=== PATIENT | female | born 1945 | race Caucasian/White ===

== ENCOUNTER 2018-05-30 04:15 | Inpatient (IN) | payer OTHER, BC ==
--- OUTSIDE RECORDS SUMMARY | 2018-05-30 04:17 | XMS REPORT | Clinical Summary ---
:1945 Author Organization [facility] Address [address] [place] [address] Care Team Providers Name Role Phone Asked, No Pcp Primary Care Provider Unavailable Allergies No Known Allergies Medications Medication Sig Dispensed Refills Start Date End Date Status HYDROcodone-acetamino Take 1 tablet by 0 Active phen (NORCO) 10-325 mouth every 6 (six) mg per tablet hours as needed for moderate pain. lisinopril Take 5 mg by mouth 0 Active (PRINIVIL,ZESTRIL) 5 daily. mg tablet ibuprofen Take 800 mg by 0 Active (ADVIL,MOTRIN) 800 MG mouth every 6 (six) tablet hours as needed for mild pain. Active Problems Not on file Encounters Date Type Specialty Care Team Description 05/18/2018 Hospital Encounter Radiology Carlos Enrique Cameron, Scoliosis of thoracolumbar spine, unspecified scoliosis type 05/18/2018 Hospital Encounter Radiology Carlos Enrique Cameron Scoliosis of thoracolumbar spine, unspecified scoliosis type 05/18/2018 Hospital Encounter Radiology Carlos Enrique Cameron, Scoliosis of thoracolumbar spine, unspecified scoliosis type 05/18/2018 Hospital Encounter Radiology Carlos Enrique Cameron MD 05/18/2018 Office Visit Neurosurgery Carlos Enrique Cameron, Scoliosis due to degenerative disease of spine in adult patient (Primary Dx) 05/18/2018 Orders Only Neurosurgery Fernandez, Scoliosis of NEDA Velázquez thoracolumbar spine, unspecified scoliosis type (Primary Dx) after 05/29/2017 Family History Medical History Relation Name Comments Cancer Other Heart disease Other Hypertension Other Stroke Other Relation Name Status Comments Other Other Social History Tobacco Use Types Packs/Day Years Used Date Former Smoker 1 40 Quit: 2004 Smokeless Tobacco: Never Used Alcohol Use Drinks/Week oz/Week Comments Yes Sex Assigned at Date Recorded Not on file Job Start Date Occupation Industry Not on file Not on file Not on file Travel History Travel Start Travel End No recent travel history available. Last Filed Vital Signs Vital Sign Reading Time Taken Blood Pressure - - Pulse - - Temperature - - Respiratory Rate - - Oxygen Saturation - - Inhaled Oxygen Concentration - - Weight 73 kg (161 lb) 05/18/2018 7:29 AM ACCESS CLINICIAN Height 154.9 cm (5' 1") 05/18/2018 7:29 AM ACCESS CLINICIAN Body Mass Index 30.42 05/18/2018 7:29 AM ACCESS CLINICIAN Plan of Treatment Date Type Specialty Care Team Description 06/03/2018 Office Visit Neurosurgery Carlos Enrique Cameron MD [address] [facility] [address] [place] [address] Health Maintenance Due Date Last Done Comments BREAST CANCER SCREENING 1996 COLON CANCER SCREENING 1996 SHINGLES VACCINES (#1) 1996 65+ PNEUMOCOCCAL VACCINE Completed 11/06/2017, 02/15/2014, 12/30/2006 PNEUMOCOCCAL POLYSACCHARIDE VACCINE Completed 11/06/2017, 12/30/2006 AGE 65 AND OVER INFLUENZA VACCINE Completed 12/02/2017, 01/03/2014, 12/30/2006 Procedures Procedure Name Priority Date/Time Associated Diagnosis Comments XR LUMBAR SPINE AP Routine 05/18/2018 4:21 Scoliosis of Results for this LATERAL FLEXION PM ACCESS CLINICIAN thoracolumbar spine, procedure are in AND EXTENSION unspecified scoliosis the results type section. XR SPINE SCOLIOSIS Routine 05/18/2018 4:20 Scoliosis of Results for this 2-3 VIEWS PM ACCESS CLINICIAN thoracolumbar spine, procedure are in unspecified scoliosis the results type section. XR THORACIC SPINE Routine 05/18/2018 4:20 Scoliosis of Results for this COMPLETE 4+ VW PM ACCESS CLINICIAN thoracolumbar spine, procedure are in unspecified scoliosis the results type section. MRI SPINE EXTERNAL Routine 11/21/2017 10:38 Results for this STUDY AM CDT procedure are in the results section. after 05/29/2017 Results XR Lumbar Spine Ap Lateral Flexion And Extension (05/18/2018 4:21 PM ACCESS CLINICIAN) Narrative Performed At EXAMINATION: XR LUMBAR SPINE AP LATERALFLEXION AND EXTENSION HM [facility] CLINICAL HISTORY: M41.9 Scoliosisunspecified, SCOLIOSIS COMPARISON:None IMPRESSION: Mild left convex lumbar scoliosis which is reduced from 12 degrees (in supine positioning) to 7 degrees with left lateral bending. Interbody cage device at L4-L5. Severe intervertebral disc space narrowing at L1-L2 and L2-L3 with vacuum cleft formation, endplate sclerosis, and mild to moderate paravertebral osteophyte formation. Vertebral body heights appear maintained. Mild retrolisthesis of L1 on L2, L2 on L3, and L3 on L4 which appears partially reduced with flexion. No dynamic instability identified. Right hip arthroplasty. Calcified uterine fibroids. [id number] Procedure Note Interface, Radiology Results Incoming - 05/18/2018 6:06 PM ACCESS CLINICIAN EXAMINATION: XR LUMBAR SPINE AP LATERAL FLEXION AND EXTENSION CLINICAL HISTORY: M41.9 Scoliosis unspecified, SCOLIOSIS COMPARISON: None IMPRESSION: Mild left convex lumbar scoliosis which is reduced from 12 degrees (in supine positioning) to 7 degrees with left lateral bending. Interbody cage device at L4-L5. Severe intervertebral disc space narrowing at L1-L2 and L2-L3 with vacuum cleft formation, endplate sclerosis, and mild to moderate paravertebral osteophyte formation. Vertebral body heights appear maintained. Mild retrolisthesis of L1 on L2, L2 on L3, and L3 on L4 which appears partially reduced with flexion. No dynamic instability identified. Right hip arthroplasty. Calcified uterine fibroids. [id number] Performing Organization Address City/State/Zipcode Phone Number [facility] [address] [place] [address] XR Spine Scoliosos 2-3 Views (05/18/2018 4:20 PM ACCESS CLINICIAN) Narrative Performed At EXAMINATION: XR SPINE SCOLIOSIS 2-3 VIEWS [facility] CLINICAL HISTORY: M41.9 Scoliosisunspecified, scoliosis COMPARISON:None IMPRESSION: 12 rib-bearing thoracic vertebrae and 5 lumbar vertebrae. Left convex lumbar scoliosis with Henriquez angle measuring 15 degrees from the superior endplate of T12 to the inferior endplate of L3. Minor curvatures of the thoracic spine with Henriquez angles measuring less than 5 degrees. A coronal stevo line drawn inferiorly from the mid C7 vertebral body terminates approximately 2.9 cm to the right of the mid S1 level. A sagittal stevo line drawn inferiorly from the mid C7 vertebral body terminates approximately 2.2 cm anterior to the posterior aspect of the superior endplate of S1. Right hip arthroplasty. Interbody cage device at L4-L5. Calcified uterine fibroid. [id number] Procedure Note Interface, Radiology Results Incoming - 05/18/2018 5:59 PM ACCESS CLINICIAN EXAMINATION: XR SPINE SCOLIOSIS 2-3 VIEWS CLINICAL HISTORY: M41.9 Scoliosis unspecified, scoliosis COMPARISON: None IMPRESSION: 12 rib-bearing thoracic vertebrae and 5 lumbar vertebrae. Left convex lumbar scoliosis with Henriquez angle measuring 15 degrees from the superior endplate of T12 to the inferior endplate of L3. Minor curvatures of the thoracic spine with Henriquez angles measuring less than 5 degrees. A coronal stevo line drawn inferiorly from the mid C7 vertebral body terminates approximately 2.9 cm to the right of the mid S1 level. A sagittal stevo line drawn inferiorly from the mid C7 vertebral body terminates approximately 2.2 cm anterior to the posterior aspect of the superior endplate of S1. Right hip arthroplasty. Interbody cage device at L4-L5. Calcified uterine fibroid. [id number] Performing Organization Address [facility] Phone Number [employer] [address] [place] [address] XR Thoracic Spine Complete 4+ Vw (05/18/2018 4:20 PM ACCESS CLINICIAN) Narrative Performed At EXAMINATION: XR THORACIC SPINE COMPLETE 4VW [facility] CLINICAL HISTORY: M41.9 Scoliosisunspecified, SCOLIOSIS COMPARISON:None IMPRESSION: Physiologic changes with left and right lateral bending. Multilevel minimal anterior endplate spurring. Vertebral body heights appear maintained. Mild thoracic kyphosis. No suspicious osseous lesion. [id number] Procedure Note Interface, Radiology Results Incoming - 05/18/2018 5:56 PM ACCESS CLINICIAN EXAMINATION: XR THORACIC SPINE COMPLETE 4 VW CLINICAL HISTORY: M41.9 Scoliosis unspecified, SCOLIOSIS COMPARISON: None IMPRESSION: Physiologic changes with left and right lateral bending. Multilevel minimal anterior endplate spurring. Vertebral body heights appear maintained. Mild thoracic kyphosis. No suspicious osseous lesion. [id number] Performing Organization Address [facility] Phone Number [employer] [address] [place] [address] MRI Spine External Study (11/21/2017 10:38 AM CDT) Narrative Performed At This exam was not acquired at a [facility] facility and has not been [facility] interpreted by a [facility] Provider.The exam was imported into our imaging system for comparisons purposes. Performing Organization Address City/[facility] Phone Number [facility] [address] [place] [address] after 05/29/2017 Insurance Payer Benefit Plan / Group Subscriber ID Type Phone Address BCBS BCBS CHOICE PPO/FEDERAL EMPL PPO xxxxxxxxx PPO MEDICARE MEDICARE PART A AND B xxxxxxxxxxx Medicare [place], [place] Advance Directives Patient has advance care planning documents on file. For more information, please contact:Jose Roberts[address] [place] [address]
[2018-05-30] MEDS ORDERED: FENTANYL CITR 100 MCG/2 ML ONE (05:00)
[2018-05-30] MEDS ORDERED: NA CHLORIDE 0.9% 1,000 ML ONE (05:00)
[2018-05-30] MEDS ORDERED: ONDANSETRON 4 MG/2 ML VIAL ONE ×2 (05:00→05:40)
[2018-05-30 05:16] LABS: Absolute Lymphocytes (CBC) 1.4 K/uL (0.7-4.9); Absolute Monocytes 0.6 K/uL (0.1-1.3); Absolute Neutrophil 6.3 K/uL (1.8-8.0); Basophils % 0.4 % (0-1.3); Eosinophils % 1.3 % (0-4.4); Hematocrit 38.5 % (36.0-45.0); Lymphocytes % 16.7 % (15.3-44.8); Monocytes % 7.6 % (3.3-12.3); RBC Red Blood Cell Count 4.21 M/uL (3.86-4.86)
[2018-05-30 05:38] LABS: Albumin 3.6 g/dL (3.4-5.0); Bilirubin Direct 0.2 mg/dL (0-0.2); Bilirubin Total 0.5 mg/dL (0.2-1.0); Potassium 4.2 mmol/L (3.5-5.1); Protein, Total 7.1 g/dL (6.4-8.2)
[2018-05-30] MEDS ORDERED: MORPHINE 4 MG/ML SYR ONE (05:40)
[2018-05-30] MEDS ORDERED: CEFTRIAXONE/SWI 1gm 1 GM/10 ML SYR ONE (05:57)
--- NOTE | 2018-05-30 06:01 | EDPHYS ---
Physician Documentation [facility] Name: Whitney Peguero Age: 72 yrs Sex: Female : 1945 Arrival Date: 05/30/2018 Time: 04:16 Bed 6 Private MD: ED Physician Dio Christianson HPI: 05/30 04:47 This 72 yrs old Female presents to ER via Ambulatory with complaints of L bebeto Flank Pain. 04:47 The patient complains of pain in the left low back and left mid back. The pain bebeto radiates. Onset: The symptoms/episode began/occurred 2 day(s) ago. Modifying factors: The symptoms are alleviated by nothing. the symptoms are aggravated by nothing. Associated signs and symptoms: Pertinent positives: dysuria, urinary frequency, nausea. Severity of pain: At its worst the pain was moderate in the emergency department the pain is unchanged. The patient has not experienced similar symptoms in the past. Historical: - Allergies: 04:33 No Known Allergies; tl2 - Home Meds: 04:33 lisinopril Oral [Active]; [place] Oral [Active]; tl2 - PMHx: 04:33 Hypertension; breast cancer; chronic back pain; tl2 - PSHx: 04:33 Appendectomy; double mastectomy; hip replacement; tl2 - Immunization history:: Adult Immunizations up to date. - Social history:: Smoking status: Patient/guardian denies using tobacco. - Ebola Screening: : No symptoms or risks identified at this time. ROS: 04:47 Constitutional: Negative for fever, chills, and weight loss, Eyes: Negative for injury, bebeto pain, redness, and discharge, ENT: Negative for injury, pain, and discharge, Neck: Negative for injury, pain, and swelling, Cardiovascular: Negative for chest pain, palpitations, and edema, Respiratory: Negative for shortness of breath, cough, wheezing, and pleuritic chest pain, Abdomen/GI: Negative for abdominal pain, nausea, vomiting, diarrhea, and constipation, : Negative for injury, bleeding, discharge, and swelling, MS/Extremity: Negative for injury and deformity, Skin: Negative for injury, rash, and discoloration, Neuro: Negative for headache, weakness, numbness, tingling, and seizure, Psych: Negative for depression, anxiety, suicide ideation, homicidal ideation, and hallucinations, Allergy/Immunology: Negative for hives, rash, and allergies, Endocrine: Negative for neck swelling, polydipsia, polyuria, polyphagia, and marked weight changes, Hematologic/Lymphatic: Negative for swollen nodes, abnormal bleeding, and unusual bruising. 04:47 Back: Positive for pain at rest, pain with movement, flank pain, on the right, of the left low back and left mid back. Exam: 04:47 Constitutional: This is a well developed, well nourished patient who is awake, alert, bebeto and in no acute distress. Head/Face: Normocephalic, atraumatic. Eyes: Pupils equal round and reactive to light, extra-ocular motions intact. Lids and lashes normal. Conjunctiva and sclera are non-icteric and not injected. Cornea within normal limits. Periorbital areas with no swelling, redness, or edema. ENT: Nares patent. No nasal discharge, no septal abnormalities noted. Tympanic membranes are normal and external auditory canals are clear. Oropharynx with no redness, swelling, or masses, exudates, or evidence of obstruction, uvula midline. Mucous membranes moist. Neck: Trachea midline, no thyromegaly or masses palpated, and no cervical lymphadenopathy. Supple, full range of motion without nuchal rigidity, or vertebral point tenderness. No Meningismus. Chest/axilla: Normal chest wall appearance and motion. Nontender with no deformity. No lesions are appreciated. Cardiovascular: Regular rate and rhythm with a normal S1 and S2. No gallops, murmurs, or rubs. Normal PMI, no JVD. No pulse deficits. Respiratory: Lungs have equal breath sounds bilaterally, clear to auscultation and percussion. No rales, rhonchi or wheezes noted. No increased work of breathing, no retractions or nasal flaring. Abdomen/GI: Soft, non-tender, with normal bowel sounds. No distension or tympany. No guarding or rebound. No evidence of tenderness throughout. Female : Normal external genitalia. Skin: Warm, dry with normal turgor. Normal color with no rashes, no lesions, and no evidence of cellulitis. MS/ Extremity: Pulses equal, no cyanosis. Neurovascular intact. Full, normal range of motion. Neuro: Awake and alert, GCS 15, oriented to person, place, time, and situation. Cranial nerves II-XII grossly intact. Motor strength 5/5 in all extremities. Sensory grossly intact. Cerebellar exam normal. Normal gait. Psych: Awake, alert, with orientation to person, place and time. Behavior, mood, and affect are within normal limits. 04:47 Back: pain, that is mild, that is moderate, ROM is normal, normal spinal alignment noted, CVA tenderness, that is mild, is noted on the left, vertebral tenderness, is not appreciated, muscle spasm, is not present. Vital Signs: 04:33 BP 190 / 93; Pulse 86; Resp 18; Temp 98.6(O); Pulse Ox 99% on R/A; Weight 74.39 kg; tl2 Height 5 ft. 1 in. (154.94 cm); Pain 7/10; 06:11 BP 159 / 65; Pulse 85; Resp 18; Pulse Ox 99% on R/A; Pain 4/10; tl2 07:29 BP 126 / 64; Pulse 91; Resp 19 S; Pulse Ox 92% on R/A; jl7 04:33 Body Mass Index 30.99 (74.39 kg, 154.94 cm) tl2 MDM: 04:33 Patient medically screened. [facility] 04:49 Data reviewed: vital signs, nurses notes, lab test result(s), EKG, radiologic studies, [facility] CT scan, plain films. 05/30 04:46 Order name: Basic Metabolic Panel; Complete Time: 05:44 [facility] 05/30 04:46 Order name: CBC with Diff; Complete Time: 05:44 [facility] 05/30 04:46 Order name: Creatinine for Radiology; Complete Time: 05:44 [facility] 05/30 04:46 Order name: Hepatic Function; Complete Time: 05:44 [facility] 05/30 04:46 Order name: Lipase; Complete Time: 05:44 [facility] 05/30 04:46 Order name: Blood Culture Adult (2) [facility] 05/30 04:46 Order name: CT Stone Protocol [facility] 05/30 04:46 Order name: Urine Culture [facility] 05/30 06:17 Order name: Urine Dipstick--Ancillary (enter results) [facility] 05/30 07:03 Order name: CBC with Automated Diff [facility] 05/30 07:03 Order name: Comprehensive Metabolic Panel [facility] 05/30 07:03 Order name: Magnesium [facility] 05/30 07:03 Order name: Phosphorus [facility] 05/30 07:03 Order name: Urinalysis [facility] 05/30 04:46 Order name: IV Saline Lock; Complete Time: 05:14 [facility] 05/30 04:46 Order name: Labs collected and sent; Complete Time: 05:15 [facility] 05/30 04:46 Order name: Urine Dipstick-Ancillary (obtain specimen); Complete Time: 06:09 [facility] 05/30 07:03 Order name: Regular EDVT Administered Medications: 05:14 Drug: NS 0.9% 1000 ml Route: IV; Rate: 1 bolus; Site: right antecubital; tl2 07:00 Follow up: IV Status: Completed infusion jl7 05:14 Drug: fentaNYL (PF) 50 mcg Route: IVP; Site: right antecubital; tl2 05:34 Follow up: Response: No adverse reaction; Pain is unchanged, physician notified tl2 05:14 Drug: Zofran 4 mg Route: IVP; Site: right antecubital; tl2 05:34 Follow up: Response: No adverse reaction tl2 05:33 Drug: morphine 4 mg Route: IVP; Site: right antecubital; tl2 06:05 Follow up: Response: No adverse reaction; Pain is decreased tl2 05:34 Drug: Zofran 4 mg Route: IVP; Site: right antecubital; tl2 06:05 Follow up: Response: No adverse reaction tl2 06:09 Drug: Rocephin - (cefTRIAXone) 1 grams Route: IVPB; Infused Over: 30 mins; Site: right tl2 antecubital; Disposition: 05/30/18 06:00 Hospitalization ordered by Nicko Stevens for Inpatient Admission. Preliminary diagnosis are Cystitis, Hydronephrosis with ureteral stricture, not elsewhere classified - failed out patient treatment, Weakness, Unspecified kidney failure, Acute tubulo-interstitial nephritis. - Bed requested for Telemetry/MedSurg (Inpatient). - Status is Inpatient Admission. jl7 - Condition is Fair. - Problem is new. - Symptoms have improved. UTI on Admission? Yes Signatures: Dispatcher [employer] [facility] Dio Christianson MD MD cha Knox, Taylor RN RN tl2 Viviana Albright RN RN jl7 Chuy Chatterjee mw2 Corrections: (The following items were deleted from the chart) 06:01 06:00 Hospitalization Ordered by Nicko Stevens MD for Inpatient Admission. Preliminary [facility] diagnosis is Cystitis; Hydronephrosis with ureteral stricture, not elsewhere classified - failed out patient treatment; Weakness. Bed requested for Telemetry/MedSurg (Inpatient). Status is Inpatient Admission. Condition is Fair. Problem is new. Symptoms have improved. UTI on Admission? Yes. [facility] 07:11 06:01 05/30/2018 06:00 Hospitalization Ordered by Nicko Stevens MD for Inpatient bebeto Admission. Preliminary diagnosis is Cystitis; Hydronephrosis with ureteral stricture, not elsewhere classified - failed out patient treatment; Weakness; Unspecified kidney failure. Bed requested for Telemetry/MedSurg (Inpatient). Status is Inpatient Admission. Condition is Fair. Problem is new. Symptoms have improved. UTI on Admission? Yes. [facility] 07:12 07:11 05/30/2018 06:00 Hospitalization Ordered by Nicko Stevens MD for Inpatient mw2 Admission. Preliminary diagnosis is Cystitis; Hydronephrosis with ureteral stricture, not elsewhere classified - failed out patient treatment; Weakness; Unspecified kidney failure; Acute tubulo-interstitial nephritis. Bed requested for Telemetry/MedSurg (Inpatient). Status is Inpatient Admission. Condition is Fair. Problem is new. Symptoms have improved. UTI on Admission? Yes. [facility] 07:57 07:12 05/30/2018 06:00 Hospitalization Ordered by Nicko Stevens MD for Inpatient jl7 Admission. Preliminary diagnosis is Cystitis; Hydronephrosis with ureteral stricture, not elsewhere classified - failed out patient treatment; Weakness; Unspecified kidney failure; Acute tubulo-interstitial nephritis. Bed requested for Telemetry/MedSurg (Inpatient). Status is Inpatient Admission. Condition is Fair. Problem is new. Symptoms have improved. UTI on Admission? Yes. mw2
--- NOTE | 2018-05-30 06:01 | ER ---
Nurse's Notes [facility] Name: Whitney Peguero Age: 72 yrs Sex: Female : 1945 Arrival Date: 05/30/2018 Time: 04:16 Bed 6 Private MD: Diagnosis: Cystitis;Hydronephrosis with ureteral stricture, not elsewhere classified-failed out patient treatment;Weakness;Unspecified kidney failure;Acute tubulo-interstitial nephritis Presentation: 05/30 04:30 Presenting complaint: Patient states: I was diagnosed with a UTI on Friday and had a tl2 urine culture done that was positive for E coli. They switched my antibiotic to nitrofurantoin. Pt c/o left flank pain that started this morning. Transition of care: patient was not received from another setting of care. Onset of symptoms was May 26, 2018. Risk Assessment: Do you want to hurt yourself or someone else? Patient reports no desire to harm self or others. Initial Sepsis Screen: Does the patient meet any 2 criteria? No. Patient's initial sepsis screen is negative. Does the patient have a suspected source of infection? No. Patient's initial sepsis screen is negative. Care prior to arrival: None. 04:30 Method Of Arrival: Ambulatory tl2 04:30 Acuity: BARBIE 3 tl2 Triage Assessment: 04:33 General: Appears in no apparent distress. uncomfortable, Behavior is calm, cooperative, tl2 appropriate for age. Pain: Complains of pain in left flank Pain does not radiate. Pain currently is 7 out of 10 on a pain scale. Quality of pain is described as sharp. Neuro: Level of Consciousness is awake, alert, obeys commands, Oriented to person, place, time, situation. Cardiovascular: Denies chest pain. Respiratory: Airway is patent Respiratory effort is even, unlabored, Respiratory pattern is regular, symmetrical. GI: No signs and/or symptoms were reported involving the gastrointestinal system. : Reports pain in left flank(s). Derm: Skin is pink, warm \T\ dry. Historical: - Allergies: 04:33 No Known Allergies; tl2 - Home Meds: 04:33 lisinopril Oral [Active]; Tillar Oral [Active]; tl2 - PMHx: 04:33 Hypertension; breast cancer; chronic back pain; tl2 - PSHx: 04:33 Appendectomy; double mastectomy; hip replacement; tl2 - Immunization history:: Adult Immunizations up to date. - Social history:: Smoking status: Patient/guardian denies using tobacco. - Ebola Screening: : No symptoms or risks identified at this time. Screenin:36 Abuse screen: Denies threats or abuse. Nutritional screening: No deficits noted. tl2 Tuberculosis screening: No symptoms or risk factors identified. Fall Risk None identified. Assessment: 04:33 General: see triage assessment. tl2 05:34 Reassessment: Patient appears in no apparent distress at this time. Patient and/or tl2 family updated on plan of care and expected duration. Pain level reassessed. pt states that fentanyl did not relieve pain, notified MD, new orders see MAY. 06:11 Reassessment: Patient appears in no apparent distress at this time. Patient and/or tl2 family updated on plan of care and expected duration. Pain level reassessed. Patient is alert, oriented x 3, equal unlabored respirations, skin warm/dry/pink. Patient states feeling better. 06:52 Reassessment: Patient and/or family updated on plan of care and expected duration. Pain ea level reassessed. Patient is alert, oriented x 3, equal unlabored respirations, skin warm/dry/pink. Pt friend left to get pt belongings, stated she would return but wants us to contact her if her assistance is needed, Malorie Galvez [phone]. Vital Signs: 04:33 BP 190 / 93; Pulse 86; Resp 18; Temp 98.6(O); Pulse Ox 99% on R/A; Weight 74.39 kg; tl2 Height 5 ft. 1 in. (154.94 cm); Pain 7/10; 06:11 BP 159 / 65; Pulse 85; Resp 18; Pulse Ox 99% on R/A; Pain 4/10; tl2 07:29 BP 126 / 64; Pulse 91; Resp 19 S; Pulse Ox 92% on R/A; jl7 04:33 Body Mass Index 30.99 (74.39 kg, 154.94 cm) tl2 ED Course: 04:16 Patient arrived in ED. am2 04:32 Triage completed. tl2 04:33 Dio Christianson MD is Attending Physician. [facility] 04:33 Arm band placed on right wrist. tl2 04:36 Patient has correct armband on for positive identification. Bed in low position. Call tl2 light in reach. Side rails up X 1. Adult w/ patient. 04:50 Inserted saline lock: 22 gauge in right antecubital area, using aseptic technique. tl2 Blood collected. 05:[address] via wheelchair. kw1 05:04 CT completed. Patient tolerated procedure well. Patient moved back from CT. kw1 05:17 CT [facility] Protocol In Process Unspecified. EDOR 05:59 Nicko Stevens MD is Hospitalizing Provider. bebeto 06:11 Liz Zhang RN is Primary Nurse. tl2 06:54 No provider procedures requiring assistance completed. Patient admitted, IV remains in ea place. Administered Medications: 05:14 Drug: NS 0.9% 1000 ml Route: IV; Rate: 1 bolus; Site: right antecubital; tl2 07:00 Follow up: IV Status: Completed infusion jl7 05:14 Drug: fentaNYL (PF) 50 mcg Route: IVP; Site: right antecubital; tl2 05:34 Follow up: Response: No adverse reaction; Pain is unchanged, physician notified tl2 05:14 Drug: Zofran 4 mg Route: IVP; Site: right antecubital; tl2 05:34 Follow up: Response: No adverse reaction tl2 05:33 Drug: morphine 4 mg Route: IVP; Site: right antecubital; tl2 06:05 Follow up: Response: No adverse reaction; Pain is decreased tl2 05:34 Drug: Zofran 4 mg Route: IVP; Site: right antecubital; tl2 06:05 Follow up: Response: No adverse reaction tl2 06:09 Drug: Rocephin - (cefTRIAXone) 1 grams Route: IVPB; Infused Over: 30 mins; Site: right tl2 antecubital; Outcome: 06:00 Decision to Hospitalize by Provider. bebeto 06:53 Instructed on the need for admit. ea 07:55 Admitted to Tele accompanied by tech, via wheelchair, room 214, with chart, Report jl7 called to SUZE Escalante 07:55 Condition: stable 07:55 Discharge instructions given to patient, Instructed on the need for admit, Demonstrated understanding of instructions. 07:57 Patient left the ED. jl7 Signatures: Dispatcher [employer] Dio Morillo MD MD bebeto Zhang, Liz, RN RN tl2 Viviana Albright RN RN jl7 Karime Loyd Elena RN RN ea Sofia Montes De Oca kw1
[2018-05-30] MEDS ORDERED: ALPRAZOLAM 0.25 MG TABLET PO PRN (06:59)
[2018-05-30] MEDS ORDERED: ONDANSETRON 4 MG/2 ML VIAL IV PRN (06:59)
--- NOTE | 2018-05-30 08:12 | P.HP ---
Certification for Inpatient Patient admitted to: Inpatient With expected LOS: >2 Midnights Patient will require the following post-hospital care: None Practitioner: I am a practitioner with admitting privileges, knowledge of patient current condition, hospital course, and medical plan of care. Services: Services provided to patient in accordance with Admission requirements found in Title 42 Section 412.3 of the Code of Federal Regulations Patient History Date of Service: 05/30/18 Reason for admission: Acute pyelonephritis History of Present Illness: Patient is a 72-year-old female came into the hospital with flank tenderness. She has been into Urgent Care a few days ago with the suprapubic pressure along with polyuria and dysuria. She was told she had a urinary tract infection. She was prescribed antibiotics but was not getting any relief. She came to the emergency room and she started having flank tenderness this morning. This was on the left side. It radiated to her pubic region. She came into the emergency room and her workup revealed pyelonephritis with mild hydronephrosis. She will be admitted to the hospital for further work workup and IV antibiotic therapy. Allergies No Known Allergies Allergy (Unverified 05/17/12 21:54) - Past Medical/Surgical History -: UTI -: Breast cancer -: Chronic low back pain Past Surgical History: Patient denies surgical history -: Laminectomy of the lumbar spine -: Bilateral mastectomy - Family History Father Family History: Reviewed- Non-Contributory Mother Medical History: Diabetes - Social History Smoking Status: Former smoker Alcohol use: No CD- Drugs: No Review of Systems 10-point ROS is otherwise unremarkable Physical Examination - Vital Signs Temperature: 98.6 F Blood Pressure: 126/64 Pulse: 91 Respirations: 19 Pulse Ox (%): 96 - Physical Exam General: Alert, In no apparent distress, Oriented x3 HEENT: Atraumatic, Normocephalic Neck: Supple, 2+ carotid pulse no bruit, JVD not distended, No Thyromegaly Respiratory: Clear to auscultation bilaterally, Normal air movement Cardiovascular: Regular rate/rhythm, Normal S1 S2, No murmurs Gastrointestinal: Normal bowel sounds, Hypoactive, Soft and benign, Non- distended, Tenderness (Left flank tenderness) Musculoskeletal: No clubbing, No swelling Integumentary: No rashes Neurological: Normal gait, Normal speech, Normal strength at 5/5 x4 extr, Normal tone, Sensation intact, Cranial nerves 3-12 intact Lymphatics: No axilla or inguinal lymphadenopathy - Studies Laboratory Data (last 24 hrs) 05/30/18 04:50: Creatinine 1.43 H 05/30/18 04:50: WBC 8.5, Hgb 13.1, Hct 38.5, Plt Count 286 05/30/18 04:50: Sodium 137, Potassium 4.2, BUN 22 H, Creatinine 1.39 H, Glucose 122 H, Total Bilirubin 0.5, AST 32, ALT 55, Alkaline Phosphatase 171 H, Lipase 74 Assessment & Plan - Problems (Diagnosis) (1) Pyelonephritis Current Visit: Yes Status: Acute (2) Hydronephrosis Current Visit: Yes Status: Acute (3) Abdominal pain Current Visit: Yes Status: Acute (4) Dysuria Current Visit: Yes Status: Acute (5) History of breast cancer Current Visit: Yes Status: Acute (6) Acute renal insufficiency Current Visit: Yes Status: Acute - Plan Plan: 1. IV hydration 2. IV antibiotics 3. Pain control 4. Urology consultation if renal function worsens-Dr. Pascual is music education director today 5. Diet as tolerated 6. GI and DVT prophylaxis - Advance Directives Does patient have a Living Will: No Does patient have a Durable POA for Healthcare: No - Code Status/Comfort Care Code Status Assessed: Yes Code Status: Full Code Critical Care: No Time Spent Managing PTS Care (In Minutes): 45
[2018-05-30 08:26] VITALS: BMI 30.9
[2018-05-30] MEDS ORDERED: ENOXAPARIN 40 MG/0.4 ML SQ SCH (09:00)
[2018-05-30 09:40] LABS: Urine Blood 1+ (NEG); Urine Glucose NEGATIVE (NEG); Urine Protein 1+ (NEG); Urine Specific Gravity 1.015 (1.005-1.030); Urine pH 5.5 (5.0-7.0)
[2018-05-30] MEDS: NA CHLORIDE 0.9% 1,000 ML IV SCH ×2 (10:49→17:23)
[2018-05-30] MEDS: ACETAMINOPHEN 500 MG TAB PO PRN ×2 (10:56→20:10)
[2018-05-30 12:51] LABS: Urine Appearance CLEAR; Urine Bilirubin NEGATIVE (NEG); Urine Blood 1+ (NEG); Urine Color DK YELLOW; Urine Glucose NEGATIVE (NEG); Urine Protein NEGATIVE (NEG)
[2018-05-30 12:59] LABS: Urine Microscopic Reflex ORDER UMIC
[2018-05-30 13:08] LABS: Urine Bacteria <20 /HPF (<20); Urine Culture Reflex Order REFLEXED
[2018-05-30] MEDS: CEFTRIAXONE/SWI 1gm 1 GM/10 ML SYR IV SCH (17:23)
[2018-05-30] MEDS ORDERED: MORPHINE 2 MG/ML SYR IV PRN (19:04)
[2018-05-31] MEDS: NA CHLORIDE 0.9% 1,000 ML IV SCH (03:50)
[2018-05-31 04:33] LABS: Absolute Lymphocytes (CBC) 1.3 K/uL (0.7-4.9); Absolute Monocytes 0.9 K/uL (0.1-1.3); Absolute Neutrophil 4.4 K/uL (1.8-8.0); Basophils % 0.4 % (0-1.3); Eosinophils % 1.4 % (0-4.4); Hematocrit 36.4 % (36.0-45.0); Lymphocytes % 19.9 % (15.3-44.8); MPV 8.3 fL (7.6-11.3); Monocytes % 13.6 % (3.3-12.3); RBC Red Blood Cell Count 3.98 M/uL (3.86-4.86)
[2018-05-31 04:55] LABS: Bilirubin Total 0.5 mg/dL (0.2-1.0); Magnesium 2.1 mg/dL (1.8-2.4); Phosphorus 2.9 mg/dL (2.5-4.9); Potassium 4.3 mmol/L (3.5-5.1); Protein, Total 6.4 g/dL (6.4-8.2)
[2018-05-31] MEDS: CEFTRIAXONE/SWI 1gm 1 GM/10 ML SYR IV SCH ×2 (05:34→17:50)
[2018-05-31] MEDS ORDERED: ENOXAPARIN 30 MG/0.3 ML SQ SCH (09:00)
[2018-05-31] MEDS: LISINOPRIL 5 MG TAB PO SCH (10:57)
--- NOTE | 2018-05-31 11:38 | P.PN ---
Subjective Date of Service: 05/31/18 Chief Complaint: Acute pyelonephritis Subjective: No C/O voiced, Improving Patient seen and examined at bedside. No family at bedside. Chart reviewed and case discussed with nursing staff. States that her flank pain has now resolved, no urinary symptoms anymore. She is feeling better. Tolerating a regular diet, ambulating without any concerns. Afebrile overnight. No acute events noted overnight. Review of Systems 10-point ROS is otherwise unremarkable Physical Examination - Vital Signs Temperature: 98 F Blood Pressure: 158/70 Pulse: 69 Respirations: 15 Pulse Ox (%): 97 - Physical Exam General: Alert, In no apparent distress, Oriented x3 HEENT: Atraumatic, PERRLA, EOMI Neck: Supple, JVD not distended Respiratory: Clear to auscultation bilaterally, Normal air movement Cardiovascular: Regular rate/rhythm, Normal S1 S2 Gastrointestinal: Normal bowel sounds, No tenderness Musculoskeletal: No tenderness, Other (Negative for CVA tenderness) Integumentary: No rashes Neurological: Normal speech, Normal tone, Normal affect Lymphatics: No axilla or inguinal lymphadenopathy - Studies Laboratory Data (last 24 hrs) 05/30/18 06:00: Sodium Cancelled, Potassium Cancelled, BUN Cancelled, Creatinine Cancelled, Glucose Cancelled, Phosphorus Cancelled, Magnesium Cancelled, Total Bilirubin Cancelled, AST Cancelled, ALT Cancelled, Alkaline Phosphatase Cancelled 05/30/18 06:00: WBC Cancelled, Hgb Cancelled, Hct Cancelled, Plt Count Cancelled Assessment And Plan - Current Problems (Diagnosis) (1) Bacteremia Current Visit: Yes Status: Acute (2) Abdominal pain Current Visit: Yes Status: Resolved Qualifiers: Abdominal location: unspecified location Qualified Code(s): R10.9 - Unspecified abdominal pain (3) Acute renal insufficiency Current Visit: Yes Status: Resolved (4) Dysuria Current Visit: Yes Status: Resolved (5) History of breast cancer Current Visit: Yes Status: Chronic (6) Hydronephrosis Current Visit: Yes Status: Acute Qualifiers: Hydronephrosis type: unspecified Qualified Code(s): N13.30 - Unspecified hydronephrosis (7) Pyelonephritis Current Visit: Yes Status: Acute - Plan This is a 71-year-old female with: Pyelonephritis Hydronephrosis Abdominal pain, resolved Dysuria, resolved Bacteremia Will continue IV antibiotics with Rocephin, day 2. Discontinue IV fluids, as patient tolerating p.o. Urine cultures without any growth, most likely because patient status post 2 doses of oral antibiotics prior to this admission. Blood cultures, preliminaries 4/4 bottles positive for gram-negative rods. Sensitivities are pending. We will wait for sensitivities to tailor antibiotic choice. History of breast cancer Acute renal insufficiency Resolved. Creatinine now in normal range DVT prophylaxis: Lovenox GI prophylaxis: None Diet: Regular Disposition: Pending blood cultures to tailor antibiotic choice. Likely discharge home after cultures return.
[2018-05-31] MEDS: HYDROCODONE/APAP 10/325 TAB PO PRN (17:49)
[2018-06-01] MEDS: HYDROCODONE/APAP 10/325 TAB PO PRN (05:31)
[2018-06-01] MEDS: CEFTRIAXONE/SWI 1gm 1 GM/10 ML SYR IV SCH (05:32)
[2018-06-01 09:00] VITALS: BP 169/71; TEMP 99.1
[2018-06-01] MEDS ORDERED: ENOXAPARIN 40 MG/0.4 ML SQ SCH (09:00)
[2018-06-01] MEDS: LISINOPRIL 5 MG TAB PO SCH (09:29)
--- NOTE | 2018-06-01 10:00 | P.DS ---
Admission Date: 05/30/18 Discharge Date: 06/01/18 Primary Care Provider: From [place] Discharge Condition: GOOD Reason for Admission: Acute pyelonephritis Consultations: None Procedures: CT Scan: Pyelonephritis noted. Medical Problem List: Left flank pain secondary to acute pyelonephritis with bacteremia, blood culture positive for E coli-4/4 bottles complicated with acute renal injury and mild hydronephrosis Hypertension Brief History of Present Illness: 72-year-old female presented to the emergency room with left flank pain and dysuria. Patient recently seen at urgent care for UTI. She was treated with antibiotics. No improvement was noted. She came to the ER for further evaluation. Patient found to have pyelonephritis with acute renal injury and mild hydronephrosis. Patient was admitted for treatment. Hospital Course: Patient presented with left flank pain secondary to acute pyelonephritis complicated with acute renal injury and mild hydronephrosis. Patient was admitted for treatment. Patient was on antibiotic therapy prior to admission without improvement. Blood cultures were positive for E coli. 4/4 bottles of blood cultures positive. Patient improved. At discharge she is without any significant abdominal pain. Renal function now within normal range and back to baseline. At discharge she will continue with Cipro 500 mg 1 pill twice daily for 14 days. Patient will be given a limited supply of tramadol 50 mg 1 pill 3 times a day as needed for pain. UTI prevention education will be provided. Recommend to recheck lab-CBC, BMP and blood cultures/urine culture in 1-2 weeks to monitor resolution. Recommend to follow up with urology as an outpatient to further monitor. Patient with hypertension. Patient will continue with her medication lisinopril 5 mg daily. Recommend to maintain blood pressures less 150/80. Further adjustment can be done by her PCP. Patient plans to establish care in the area. She is from [place]. She plans to go back to [place] later this month. Vital Signs/Physical Exam: Temp Pulse Resp BP Pulse Ox 99.1 F 75 15 169/71 H 96 06/01/18 08:00 06/01/18 09:29 06/01/18 08:00 06/01/18 09:29 06/01/18 08:00 General: Alert, In no apparent distress, Oriented x3, Cooperative HEENT: Atraumatic, Mucous membr. moist/pink Neck: Supple Respiratory: Clear to auscultation bilaterally, Normal air movement Cardiovascular: Normal pulses, Regular rate/rhythm Gastrointestinal: Normal bowel sounds, Soft and benign, Non-distended, No tenderness, No masses, No rebound, No guarding Musculoskeletal: No erythema, No tenderness, No warmth Integumentary: No tenderness/swelling, No erythema, No warmth, No cyanosis Neurological: Normal speech, Normal strength at 5/5 x4 extr, Normal tone, Normal affect Lymphatics: No axilla or inguinal lymphadenopathy Laboratory Data at Discharge: WBC 6.8 K/uL (4.3-10.9) D 05/31/18 03:48 Hgb 12.4 g/dL (12.0-15.0) 05/31/18 03:48 Hct 36.4 % (36.0-45.0) 05/31/18 03:48 Plt Count 257 K/uL (152-406) 05/31/18 03:48 Sodium 142 mmol/L (136-145) 05/31/18 03:48 Potassium 4.3 mmol/L (3.5-5.1) 05/31/18 03:48 BUN 13 mg/dL (7-18) 05/31/18 03:48 Creatinine 0.71 mg/dL (0.55-1.3) 05/31/18 03:48 Glucose 116 mg/dL (74-106) H 05/31/18 03:48 Phosphorus 2.9 mg/dL (2.5-4.9) 05/31/18 03:48 Magnesium 2.1 mg/dL (1.8-2.4) 05/31/18 03:48 Total Bilirubin 0.5 mg/dL (0.2-1.0) 05/31/18 03:48 AST 40 U/L (15-37) H 05/31/18 03:48 ALT 66 U/L (12-78) 05/31/18 03:48 Alkaline Phosphatase 166 U/L (45-117) H 05/31/18 03:48 Lipase 74 U/L (73-393) 05/30/18 04:50 Home Medications: Hydrocodone 10/APAP 325 [[place] 10/325*] 1 tab PO Q6H PRN 05/30/18 Lisinopril 5 mg PO DAILY 05/30/18 Ciprofloxacin HCl [Cipro 500 MG Tablet] 500 mg PO BID #28 tab 06/01/18 Tramadol HCl [Ultram] 50 mg PO TID PRN #15 tablet 06/01/18 New Medications: Ciprofloxacin HCl [Cipro 500 MG Tablet] 500 mg PO BID #28 tab Tramadol HCl [Ultram] 50 mg PO TID PRN #15 tablet PRN Reason: Pain Scale 2-4 (Mild) Patient Discharge Instructions: 1. Patient will need to establish care as an outpatient to follow up this hospitalization. 2. Patient presented with left flank pain secondary to acute pyelonephritis complicated with acute renal injury and mild hydronephrosis. Patient was admitted for treatment. Patient was on antibiotic therapy prior to admission without improvement. Blood cultures were positive for E coli. 4/4 bottles of blood cultures positive. Patient improved. At discharge she is without any significant abdominal pain. Renal function now within normal range and back to baseline. At discharge she will continue with Cipro 500 mg 1 pill twice daily for 14 days. Patient will be given a limited supply of tramadol 50 mg 1 pill 3 times a day as needed for pain. UTI prevention education will be provided. Recommend to recheck lab-CBC, BMP and blood cultures/urine culture in 1-2 weeks to monitor resolution. Recommend to follow up with urology as an outpatient to further monitor. 3. Patient with hypertension. Patient will continue with her medication lisinopril 5 mg daily. Recommend to maintain blood pressures less 150/80. Further adjustment can be done by her PCP. 4. Patient plans to establish care in the area. She is from [place]. She plans to go back to [place] later this month. Diet: AHA Activity: Ad jose carlos Time spent managing pt's care (in minutes): 55
--- NOTE | 2018-06-01 11:15 | RAD REPORT ---
EXAM DESCRIPTION: CT - [facility] Protocol - 05/30/2018 5:27 am CLINICAL HISTORY: The patient is 72 years old and is Female; FLANK PAIN TECHNIQUE: Axial computed tomography images of the abdomen and pelvis without intravenous contrast. Sagittal and coronal reformatted images were created and reviewed. This CT exam was performed usi ng one or more of the following dose reduction techniques: automated exposure control, adjustment o f the mA and/or kV according to patient size, and/or use of iterative reconstruction technique. COMPARISON: No relevant prior studies available. FINDINGS: Lung bases: Unremarkable. No mass. No consolidation. ABDOMEN: Liver: Homogeneous without focal mass. Gallbladder and bile ducts: The gallbladder is physiologically distended. Pancreas: Unremarkable. No ductal dilation. Spleen: Unremarkable. Adrenals: Unremarkable. No mass. Kidneys and ureters: Mild left hydroureteronephrosis is present. No obstructive deep calculus is seen. Left perinephric and periureteral stranding is present. An exophytic 3.2 cm right renal cyst is present. Stomach and bowel: The stomach is minimally distended. The small bowel is normal in caliber. Sto ol is present throughout the colon. There is no mucosal thickening or evidence of bowel obstruction. PELVIS: Appendix: No findings to suggest acute appendicitis. Bladder: Unremarkable. No stones. Reproductive: Calcified uterine fibroids are noted. ABDOMEN and PELVIS: Intraperitoneal space: Unremarkable. No free air. No significant fluid collection. Bones/joints: Postsurgical change at L4-L5 and intervertebral disc spacers noted. Degenerative c hanges spine is present. Soft tissues: Bilateral breast implants are partially visualized. Vasculature: Unremarkable. No abdominal aortic aneurysm. Lymph nodes: Unremarkable. No enlarged lymph nodes. IMPRESSION: Mild left hydroureteronephrosis with associated perinephric and periureteral stranding. No obstructing calculus is seen. Findings likely secondary to a recently passed calculus. Electronically signed by: Anjali Ribeiro MD 05/30/2018 5:22 AM JAR FILLER Due to temporary technical issues with the PACS/Fluency reporting system, reports are being signed by the in house radiologist As a courtesy to ensure prompt reporting. The interpreting radiologist is f ully responsible for the content of the report.
[2018-06-01 14:02] VITALS: O2SAT 96
[2018-06-01] MEDS ORDERED: CIPROFLOXACIN HCL 500 MG TAB PO SCH (21:00)
== END 2018-06-01 12:00 | disposition home or self-care (01) | DRG 872 ==
LOC: ER 04:15 → ERHOLD 06:59 → 2ND 07:48
PROVIDERS: ADMIT Hospitalist; ATTEND Family Medicine
DX: R78.81 Bacteremia (principal); N10 Acute pyelonephritis; N17.9 Acute kidney failure, unspecified; N13.30 Unspecified hydronephrosis; B96.20 Unspecified Escherichia coli [E. coli] as the cause of diseases classified elsewhere; I10 Essential (primary) hypertension; G89.29 Other chronic pain; M54.9 Dorsalgia, unspecified; Z85.3 Personal history of malignant neoplasm of breast; Z87.891 Personal history of nicotine dependence
CPT/HCPCS: 36415; 74176; 76377; 80048; 80053; 80076; 81003; 81015; 83690; 83735; 84100; 85025; 87040; 87077; 87086; 87088; 87186; 87205; 96361; 96374; 96375; 99285; J0696; J1650; J2270; J2405; J3010; J7030

== ENCOUNTER 2019-05-28 16:10 | Observation (INO) | payer OTHER, BC ==
--- NOTE | 2019-05-28 17:00 | RAD REPORT ---
EXAM DESCRIPTION: MRI - Brain Wo Cont - 05/28/2019 4:38 pm CLINICAL HISTORY: NUMBNESS Headache, drowsiness, CVA symptomology COMPARISON: No comparisons TECHNIQUE: Multi-sequence, multiplanar MR imaging of the brain was performed without contrast. FINDINGS: No intracranial hemorrhage, hydrocephalus or extra-axial fluid collections.Mild periventri cular chronic microvascular ischemic changes. No edema or shift of midline structures. No findings to suspect brain mass. DWI is negative for acute CVA. Midline structures are normally formed. Mastoid air cells and paranasal sinuses are clear. IMPRESSION: Negative for acute CVA or other acute intracranial process.
--- NOTE | 2019-05-28 17:04 | EDPHYS ---
Physician Documentation [facility] Name: Whitney Peguero Age: 73 yrs Sex: Female : 1945 Arrival Date: 05/28/2019 Time: 16:15 Bed 8 Private MD: THUAN Physician Dio Christianson HPI: 05/28 16:57 This 73 yrs old Female presents to ER via EMS with complaints of Numbness Of bebeto Face. 16:57 The patient's problem is reported as paresthesias, in right side of face. Onset: The bebeto symptoms/episode began/occurred 2 hour(s) ago. The symptoms are alleviated by nothing. The symptoms are aggravated by nothing. Associated signs and symptoms: The patient has no apparent associated signs or symptoms. Patient's baseline: Neuro: alert and fully oriented. Historical: - Allergies: 16:20 No Known Allergies; aj1 - Home Meds: 16:20 lisinopril 20 mg oral tab once daily [Active]; [place] 7.5-325 mg oral tab 1 tab three aj1 times a day [Active]; Motrin 800 mg Oral tab 2 tabs three times a day [Active]; - PMHx: 16:20 breast cancer; chronic back pain; Hypertension; aj1 - PSHx: 16:20 Mastectomy, Left; Appendectomy; laminectomy; right hip replacement; L4- L5 fusion; aj1 - Immunization history:: Adult Immunizations up to date, Flu vaccine is up to date. - Social history:: Smoking status: Patient/guardian denies using tobacco. - Family history:: not pertinent. ROS: 16:57 Constitutional: Negative for fever, chills, and weight loss, Eyes: Negative for injury, bebeto pain, redness, and discharge, ENT: Negative for injury, pain, and discharge, Neck: Negative for injury, pain, and swelling, Cardiovascular: Negative for chest pain, palpitations, and edema, Respiratory: Negative for shortness of breath, cough, wheezing, and pleuritic chest pain, Abdomen/GI: Negative for abdominal pain, nausea, vomiting, diarrhea, and constipation, Back: Negative for injury and pain, : Negative for injury, bleeding, discharge, and swelling, MS/Extremity: Negative for injury and deformity, Skin: Negative for injury, rash, and discoloration, Psych: Negative for depression, anxiety, suicide ideation, homicidal ideation, and hallucinations, Allergy/Immunology: Negative for hives, rash, and allergies, Endocrine: Negative for neck swelling, polydipsia, polyuria, polyphagia, and marked weight changes. 16:57 Neuro: Positive for numbness, speech changes, 330 pm. Exam: 16:57 Constitutional: This is a well developed, well nourished patient who is awake, alert, bebeto and in no acute distress. Head/Face: Normocephalic, atraumatic. Eyes: Pupils equal round and reactive to light, extra-ocular motions intact. Lids and lashes normal. Conjunctiva and sclera are non-icteric and not injected. Cornea within normal limits. Periorbital areas with no swelling, redness, or edema. ENT: Nares patent. No nasal discharge, no septal abnormalities noted. Tympanic membranes are normal and external auditory canals are clear. Oropharynx with no redness, swelling, or masses, exudates, or evidence of obstruction, uvula midline. Mucous membranes moist. Neck: Trachea midline, no thyromegaly or masses palpated, and no cervical lymphadenopathy. Supple, full range of motion without nuchal rigidity, or vertebral point tenderness. No Meningismus. Chest/axilla: Normal chest wall appearance and motion. Nontender with no deformity. No lesions are appreciated. Cardiovascular: Regular rate and rhythm with a normal S1 and S2. No gallops, murmurs, or rubs. Normal PMI, no JVD. No pulse deficits. Respiratory: Lungs have equal breath sounds bilaterally, clear to auscultation and percussion. No rales, rhonchi or wheezes noted. No increased work of breathing, no retractions or nasal flaring. Abdomen/GI: Soft, non-tender, with normal bowel sounds. No distension or tympany. No guarding or rebound. No evidence of tenderness throughout. Back: No spinal tenderness. No costovertebral tenderness. Full range of motion. Female : Normal external genitalia. Skin: Warm, dry with normal turgor. Normal color with no rashes, no lesions, and no evidence of cellulitis. MS/ Extremity: Pulses equal, no cyanosis. Neurovascular intact. Full, normal range of motion. Neuro: Awake and alert, GCS 15, oriented to person, place, time, and situation. Cranial nerves II-XII grossly intact. Motor strength 5/5 in all extremities. Sensory grossly intact. Cerebellar exam normal. Normal gait. Psych: Awake, alert, with orientation to person, place and time. Behavior, mood, and affect are within normal limits. 16:59 Neuro: Orientation: is normal, appropriate for stated age, no acute changes, Mentation: bebeto is normal, Memory: is normal, Cranial nerves: grossly normal, is grossly normal based on the patient's age, no acute changes, Cerebellar function: is grossly normal, Motor: is normal, Sensation: is normal, Gait: not applicable Babinski testing is normal, seizure activity, is not displayed by the patient. 17:00 Radiologist reports: mri neg for cva, per harshad [facility] 17:08 Neuro: pt at baseline, no deficits, not Tpa candidate. [facility] Vital Signs: 16:15 BP 187 / 89; Pulse 77; Resp 18; Temp 98.6(TE); Pulse Ox 98% on R/A; Weight 71.21 kg aj1 (R); Height 5 ft. 1 in. (154.94 cm) (R); Pain 0/10; 18:14 BP 159 / 64; Pulse 68; Resp 18; Pulse Ox 97% on R/A; aj1 18:54 BP 156 / 75; Pulse 72; Resp 17; Pulse Ox 97% on R/A; aj1 19:47 BP 169 / 77; Pulse 85; Resp 20; Pulse Ox 98% ; lw1 16:15 Body Mass Index 29.66 (71.21 kg, 154.94 cm) [facility] NIH Stroke Scale Scores: 16:21 NIHSS Score: 0 [facility] 17:08 NIHSS Score: 0 [facility] MDM: 16:16 Patient medically screened. [facility] 17:01 Data reviewed: vital signs, nurses notes, lab test result(s), EKG, radiologic studies, bebeto MRI. 05/28 16:19 Order name: Basic Metabolic Panel; Complete Time: 18:51 bebeto 05/28 16:19 Order name: CBC with Diff; Complete Time: 18:51 [facility] 05/28 16:19 Order name: LFT's; Complete Time: 18:51 bebeto 05/28 16:19 Order name: Magnesium; Complete Time: 18:51 bebeto 05/28 16:19 Order name: NT PRO-BNP; Complete Time: 18:51 [facility] 05/28 16:19 Order name: PT-INR; Complete Time: 18:51 [facility] 05/28 16:19 Order name: Troponin (emerg Dept Use Only); Complete Time: 18:51 [facility] 05/28 16:19 Order name: Urine Culture [facility] 05/28 17:08 Order name: Lipid Profile [facility] 05/28 17:56 Order name: Urine Dipstick--Ancillary (enter results); Complete Time: 18:51 dh4 05/28 17:58 Order name: Thyroid Stimulating Hormone [facility] 05/28 17:58 Order name: Urinalysis [facility] 05/28 17:58 Order name: CBC with Automated Diff [facility] 05/28 17:58 Order name: CBC with Automated Diff [facility] 05/28 16:19 Order name: XRAY Chest (1 view); Complete Time: 18:51 [facility] 05/28 16:19 Order name: EKG; Complete Time: 16:21 [facility] 05/28 16:19 Order name: Cardiac monitoring; Complete Time: 16:23 [facility] 05/28 16:19 Order name: EKG - Nurse/Tech; Complete Time: 18:16 [facility] 05/28 16:19 Order name: IV Saline Lock; Complete Time: 18:16 [facility] 05/28 16:35 Order name: Brain Wo Cont; Complete Time: 18:51 [facility] 05/28 16:47 Order name: US Carotid Artery Bilateral; Complete Time: 18:51 [facility] 05/28 17:58 Order name: CONS Physician Consult [facility] 05/28 17:58 Order name: Heart Healthy [facility] 05/28 17:58 Order name: Comprehensive Metabolic Panel [facility] 05/28 17:58 Order name: Comprehensive Metabolic Panel [facility] 05/28 18:02 Order name: Echo with Doppler [facility] 05/28 16:19 Order name: Labs collected and sent; Complete Time: 18:16 [facility] 05/28 16:19 Order name: O2 Per Protocol; Complete Time: 16:23 [facility] 05/28 16:19 Order name: O2 Sat Monitoring; Complete Time: 16:23 [facility] 05/28 16:19 Order name: Urine Dipstick-Ancillary (obtain specimen); Complete Time: 18:16 [facility] Administered Medications: 18:15 Drug: NS 0.9% 1000 ml Route: IV; Rate: 1 bolus; Site: right antecubital; aj1 18:56 Follow up: IV Status: Completed infusion; IV Intake: 1000ml aj1 18:15 Drug: foLIC Acid 1 mg Route: IVPB; Site: right antecubital; aj1 18:56 Follow up: IV Status: Completed infusion aj1 18:26 Drug: Aspirin Chewable Tablet 324 mg Route: PO; 18:56 Follow up: Response: No adverse reaction aj1 Disposition: 05/28/19 17:03 Hospitalization ordered by Gonzalo Whyte for Observation. Preliminary diagnosis is Transient cerebral ischemic attack, unspecified. - Bed requested for Telemetry/MedSurg (observation). - Status is Observation. lw1 - Condition is Stable. - Problem is new. - Symptoms have improved. NIH Stroke Scale - NIH Stroke Score Date: 05/28/2019 Time: 16:21 Total Score = 0 1a. Level of Consciousness (LOC) - 0(Alert) 1b. Level of Consciousness (LOC) (Year \T\ Age) - 0(Both) 1c. LOC Commands (Open \T\ Closes Eyes/Foreign Exchange Position Clerk) - 0(Both) 2. Best Gaze (Lateral Gaze Paresis) - 0(Normal) 3. Visual Field Loss - 0(No visual loss) 4. Facial Palsy - 0(Normal) 5a. Left Arm: Motor (10-second hold) - 0(No drift) 5b. Right Arm: Motor (10-second hold) - 0(No drift) 6a. Left Leg: Motor (5-second hold - always test supine) - 0(No drift) 6b. Right Leg: Motor (5-second hold - always test supine) - 0(No drift) 7. Limb Ataxia (finger/nose \T\ heel/carey - test with eyes open) - 0(Absent) 8. Sensory Loss (pinprick arms/legs/face) - 0(Normal) 9. Best Language: Aphasia (description/naming/reading) - 0(No aphasia) 10. Dysarthria (speech clarity - read or repeat words) - 0(Normal) 11. Extinction and Inattention (visual/tactile/auditory/spatial/personal) - 0(No abnormality) Initials: aj1 NIH Stroke Scale - NIH Stroke Score Date: 05/28/2019 Time: 17:08 Total Score = 0 1a. Level of Consciousness (LOC) - 0(Alert) 1b. Level of Consciousness (LOC) (Year \T\ Age) - 0(Both) 1c. LOC Commands (Open \T\ Closes Eyes/Foreign Exchange Position Clerk) - 0(Both) 2. Best Gaze (Lateral Gaze Paresis) - 0(Normal) 3. Visual Field Loss - 0(No visual loss) 4. Facial Palsy - 0(Normal) 5a. Left Arm: Motor (10-second hold) - 0(No drift) 5b. Right Arm: Motor (10-second hold) - 0(No drift) 6a. Left Leg: Motor (5-second hold - always test supine) - 0(No drift) 6b. Right Leg: Motor (5-second hold - always test supine) - 0(No drift) 7. Limb Ataxia (finger/nose \T\ heel/carey - test with eyes open) - 0(Absent) 8. Sensory Loss (pinprick arms/legs/face) - 0(Normal) 9. Best Language: Aphasia (description/naming/reading) - 0(No aphasia) 10. Dysarthria (speech clarity - read or repeat words) - 0(Normal) 11. Extinction and Inattention (visual/tactile/auditory/spatial/personal) - 0(No abnormality) Initials: [facility] Signatures: Dispatcher [employer] EDNeha Chin RN RN aj1 Dio Christianson MD MD cha Smirch, Shelby RN Kenn Rose RN RN lw1 Corrections: (The following items were deleted from the chart) 16:36 16:21 MR STROKE PROTOCOL+MRI.RAD.BRZ ordered. [facility] 18:21 17:03 Hospitalization Ordered by Gonzalo Whyte MD for Observation. Preliminary ss diagnosis is Transient cerebral ischemic attack, unspecified. Bed requested for Telemetry/MedSurg (observation). Status is Observation. Condition is Stable. Problem is new. Symptoms have improved. [facility] 20:44 18:21 05/28/2019 17:03 Hospitalization Ordered by Gonzalo Whyte MD for lw1 Observation. Preliminary diagnosis is Transient cerebral ischemic attack, unspecified. Bed requested for Telemetry/MedSurg (observation). Status is Observation. Condition is Stable. Problem is new. Symptoms have improved. ss
--- NOTE | 2019-05-28 17:04 | ER ---
Nurse's Notes [facility] Name: Whitney Peguero Age: 73 yrs Sex: Female : 1945 Arrival Date: 05/28/2019 Time: 16:15 Bed 8 Private MD: Diagnosis: Transient cerebral ischemic attack, unspecified Presentation: 05/28 16:15 Chief complaint: Patient states: 30 minutes ago she started having numbness to the aj1 right thumb/index finger, tongue and the right side of her face. She called EMS but it has resolved by the time she arrived 10 minutes later. Coronavirus screen: The patient has NOT traveled to [place] in the past 14 days. Ebola Screen: Patient denies travel to an Ebola-affected area in the 21 days before illness onset. Initial Sepsis Screen: Does the patient meet any 2 criteria? No. Patient's initial sepsis screen is negative. Does the patient have a suspected source of infection? No. Patient's initial sepsis screen is negative. Risk Assessment: Do you want to hurt yourself or someone else? Patient reports no desire to harm self or others. 16:15 Method Of Arrival: EMS: [facility] aj 16:15 Acuity: BARBIE 3 aj1 18:55 Onset of symptoms was May 28, 2019. aj1 Triage Assessment: 16:20 General: Appears in no apparent distress. comfortable, Behavior is calm, cooperative, aj1 appropriate for age. Pain: Denies pain. Historical: - Allergies: 16:20 No Known Allergies; aj1 - Home Meds: 16:20 lisinopril 20 mg oral tab once daily [Active]; [place] 7.5-325 mg oral tab 1 tab three aj1 times a day [Active]; Motrin 800 mg Oral tab 2 tabs three times a day [Active]; - PMHx: 16:20 breast cancer; chronic back pain; Hypertension; aj1 - PSHx: 16:20 Mastectomy, Left; Appendectomy; laminectomy; right hip replacement; L4- L5 fusion; aj1 - Immunization history:: Adult Immunizations up to date, Flu vaccine is up to date. - Social history:: Smoking status: Patient/guardian denies using tobacco. - Family history:: not pertinent. Screenin:21 Abuse screen: Denies threats or abuse. Denies injuries from another. Nutritional aj1 screening: No deficits noted. Tuberculosis screening: No symptoms or risk factors identified. 18:20 Patient has been NPO before screening. The patient is alert, able to follow commands. aj1 The patient does not exhibit slurred or garbled speech The patient is not exhibiting difficulty speaking. The patient does not exhibit difficulty understanding words. The patient is able to swallow own secretions with no drooling or need for suction. Patient tolerated one teaspoon of water. No drooling, immediate coughing, gurgling, or clearing of the throat was noted. The patient tolerated 90mL of water. No drooling, immediate coughing, gurgling, or clearing of the throat was noted. The patient passed the bedside swallow screening. Oral medications may be given as ordered. Contact Physician for further diet orders. 18:55 Fall Risk None identified. aj1 Assessment: 16:21 General: Appears in no apparent distress. comfortable, Behavior is calm, cooperative, aj1 appropriate for age. Pain: Denies pain. Neuro: Level of Consciousness is awake, alert, obeys commands, Oriented to person, place, time, situation, Harnessmaker are equal bilaterally Moves all extremities. Full function Speech is normal, Facial symmetry appears normal, Reports numbness that has now resolved. Cardiovascular: Patient's skin is warm and dry. Respiratory: Airway is patent Respiratory effort is even, unlabored, Respiratory pattern is regular, symmetrical. GI: No signs and/or symptoms were reported involving the gastrointestinal system. : No signs and/or symptoms were reported regarding the genitourinary system. EENT: No signs and/or symptoms were reported regarding the EENT system. Derm: No signs and/or symptoms reported regarding the dermatologic system. Skin is pink, warm \T\ dry. normal. Musculoskeletal: No signs and/or symptoms reported regarding the musculoskeletal system. Circulation, motion, and sensation intact. 16:31 Reassessment: Patient transported to MRI via wheelchair. aj1 17:20 Reassessment: Patient returned to ER bed 8. aj1 17:24 Reassessment: US at bedside. aj1 17:40 Reassessment: Patient states that she needs to use the bathroom before we start an IV aj1 on her. Patient ambulated to the bathroom with a steady gait. 17:51 Reassessment: Dr. Whyte at bedside to evaluate patient. aj1 18:13 Reassessment: Patient and/or family updated on plan of care and expected duration. Pain aj1 level reassessed. General: Appears in no apparent distress. comfortable, Behavior is calm, cooperative, appropriate for age. Pain: Denies pain. Neuro: Level of Consciousness is awake, alert, obeys commands, Oriented to person, place, time, situation, Moves all extremities. Full function Speech is normal, Facial symmetry appears normal. Cardiovascular: Patient's skin is warm and dry. Rhythm is sinus rhythm. Cardiovascular: Heart tones S1 S2 present. Respiratory: Airway is patent Respiratory effort is even, unlabored, Respiratory pattern is regular, symmetrical, Breath sounds are clear bilaterally. Derm: Skin is pink, warm \T\ dry. normal. Musculoskeletal: Circulation, motion, and sensation intact. 18:54 Reassessment: Patient appears in no apparent distress at this time. No changes from aj1 previously documented assessment. Patient and/or family updated on plan of care and expected duration. Pain level reassessed. Patient is alert, oriented x 3, equal unlabored respirations, skin warm/dry/pink. 19:52 Reassessment: patient appear agiatated and wanted to go home, Dr. Christianson seen patient lw1 and explained the reasoning for admission, patient calmed and verbalized understanding and agreed. Neuro: No deficits noted. Level of Consciousness is awake, alert, obeys commands, Oriented to person, place, time, situation, Appropriate for age Denies blurred vision dizziness. Vital Signs: 16:15 BP 187 / 89; Pulse 77; Resp 18; Temp 98.6(TE); Pulse Ox 98% on R/A; Weight 71.21 kg aj1 (R); Height 5 ft. 1 in. (154.94 cm) (R); Pain 0/10; 18:14 BP 159 / 64; Pulse 68; Resp 18; Pulse Ox 97% on R/A; aj1 18:54 BP 156 / 75; Pulse 72; Resp 17; Pulse Ox 97% on R/A; aj1 19:47 BP 169 / 77; Pulse 85; Resp 20; Pulse Ox 98% ; lw1 16:15 Body Mass Index 29.66 (71.21 kg, 154.94 cm) aj NIH Stroke Scale Scores: 16:21 NIHSS Score: 0 aj1 17:08 NIHSS Score: 0 bebeto ED Course: 16:15 Patient arrived in ED. aj1 16:16 Dio Christianson MD is Attending Physician. bebeto 16:18 Triage completed. aj1 16:20 Arm band placed on. aj1 16:21 Patient has correct armband on for positive identification. Bed in low position. Call aj1 light in reach. Side rails up X 1. 16:21 No provider procedures requiring assistance completed. aj1 16:25 Neha Jacobson RN is Primary Nurse. aj1 16:32 Patient moved to MRI via wheelchair. em2 16:38 Brain Wo Cont In Process Unspecified. EDMS 16:59 XRAY Chest (1 view) In Process Unspecified. EDMS 17:03 Gonzalo Whyte MD is Hospitalizing Provider. bebeto 17:43 US Carotid Artery Bilateral In Process Unspecified. EDMS 18:12 Initial lab(s) drawn, by me, sent to lab. Inserted saline lock: 20 gauge in right aj1 antecubital area, using aseptic technique. Blood collected. 18:54 Report given to SUZE Montoya on 2nd floor. aj1 18:54 Patient admitted, IV remains in place. aj1 Administered Medications: 18:15 Drug: NS 0.9% 1000 ml Route: IV; Rate: 1 bolus; Site: right antecubital; aj1 18:56 Follow up: IV Status: Completed infusion; IV Intake: 1000ml aj1 18:15 Drug: foLIC Acid 1 mg Route: IVPB; Site: right antecubital; aj1 18:56 Follow up: IV Status: Completed infusion aj1 18:26 Drug: Aspirin Chewable Tablet 324 mg Route: PO; aj1 18:56 Follow up: Response: No adverse reaction aj1 Intake: 18:56 IV: 1000ml; Total: 1000ml. aj1 Outcome: 17:03 Decision to Hospitalize by Provider. bebeto 19:56 Admitted to Med/surg accompanied by tech, via stretcher, room 206, with chart, Other lw1 report given previous, called to see if nurse was ready for patient, nurse stated that she was ready. 19:56 Condition: stable 19:56 Instructed on the need for admit. 20:20 Patient left the ED. lw1 NIH Stroke Scale - NIH Stroke Score Date: 05/28/2019 Time: 16:21 Total Score = 0 1a. Level of Consciousness (LOC) - 0(Alert) 1b. Level of Consciousness (LOC) (Year \T\ Age) - 0(Both) 1c. LOC Commands (Open \T\ Closes Eyes/Beef Farmer) - 0(Both) 2. Best Gaze (Lateral Gaze Paresis) - 0(Normal) 3. Visual Field Loss - 0(No visual loss) 4. Facial Palsy - 0(Normal) 5a. Left Arm: Motor (10-second hold) - 0(No drift) 5b. Right Arm: Motor (10-second hold) - 0(No drift) 6a. Left Leg: Motor (5-second hold - always test supine) - 0(No drift) 6b. Right Leg: Motor (5-second hold - always test supine) - 0(No drift) 7. Limb Ataxia (finger/nose \T\ heel/carey - test with eyes open) - 0(Absent) 8. Sensory Loss (pinprick arms/legs/face) - 0(Normal) 9. Best Language: Aphasia (description/naming/reading) - 0(No aphasia) 10. Dysarthria (speech clarity - read or repeat words) - 0(Normal) 11. Extinction and Inattention (visual/tactile/auditory/spatial/personal) - 0(No abnormality) Initials: aj1 NIH Stroke Scale - NIH Stroke Score Date: 05/28/2019 Time: 17:08 Total Score = 0 1a. Level of Consciousness (LOC) - 0(Alert) 1b. Level of Consciousness (LOC) (Year \T\ Age) - 0(Both) 1c. LOC Commands (Open \T\ Closes Eyes/Beef Farmer) - 0(Both) 2. Best Gaze (Lateral Gaze Paresis) - 0(Normal) 3. Visual Field Loss - 0(No visual loss) 4. Facial Palsy - 0(Normal) 5a. Left Arm: Motor (10-second hold) - 0(No drift) 5b. Right Arm: Motor (10-second hold) - 0(No drift) 6a. Left Leg: Motor (5-second hold - always test supine) - 0(No drift) 6b. Right Leg: Motor (5-second hold - always test supine) - 0(No drift) 7. Limb Ataxia (finger/nose \T\ heel/carey - test with eyes open) - 0(Absent) 8. Sensory Loss (pinprick arms/legs/face) - 0(Normal) 9. Best Language: Aphasia (description/naming/reading) - 0(No aphasia) 10. Dysarthria (speech clarity - read or repeat words) - 0(Normal) 11. Extinction and Inattention (visual/tactile/auditory/spatial/personal) - 0(No abnormality) Initials: bebeto Signatures: Dispatcher [employer] EDMS Neha Jacobson RN RN aj1 Dio Christianson MD MD cha Montes, Enrique em2 Kenn Rodrigues RN RN lw1 Corrections: (The following items were deleted from the chart) 20:45 20:44 Patient left the ED. lw1 lw1
--- NOTE | 2019-05-28 17:15 | RAD REPORT ---
EXAM DESCRIPTION: RAD - Chest Single View - 05/28/2019 5:01 pm CLINICAL HISTORY: COUGH Chest pain. COMPARISON: Chest Pa And Lat (2 Views) dated 04/22/2016 FINDINGS: Portable technique limits examination quality. The lungs are mildly emphysematous but clear. The heart is normal in size. No displaced fractures. IMPRESSION: No acute intrathoracic process suspected.
[2019-05-28] MEDS ORDERED: ACETAMINOPHEN 500 MG TAB PO PRN (17:54)
[2019-05-28] MEDS ORDERED: ONDANSETRON 4 MG/2 ML VIAL IV PRN (17:54)
[2019-05-28] MEDS ORDERED: HYDROCODONE/APAP 10/325 TAB PO PRN (17:57)
[2019-05-28] MEDS ORDERED: TRAMADOL HCL 50 MG TAB PO PRN (17:57)
--- NOTE | 2019-05-28 17:57 | RAD REPORT ---
EXAM DESCRIPTION: - CP - 05/28/2019 5:42 pm CLINICAL HISTORY: Dizziness;TIA Headache, dizziness, CVA symptomology COMPARISON: No comparisons TECHNIQUE: Real-time sonographic evaluation of both carotid systems was performed. Doppler interroga tion was performed with waveform tracing bilaterally. FINDINGS: Normal high resistance waveforms are noted in both external carotid arteries. The common c arotid arteries and internal carotid arteries show normal low resistance waveforms. No significant plaque formation is seen. Peak systolic and end diastolic velocity values and the ICA/ CCA ratios are in the non-hemodynamically significant range. Antegrade flow seen in both vertebral arteries. IMPRESSION: No significant atherosclerotic changes noted. No evidence of a hemodynamically significant stenosis.
--- NOTE | 2019-05-28 18:05 | P.HP ---
Certification for Inpatient Patient admitted to: Observation With expected LOS: <2 Midnights Practitioner: I am a practitioner with admitting privileges, knowledge of patient current condition, hospital course, and medical plan of care. Services: Services provided to patient in accordance with Admission requirements found in Title 42 Section 412.3 of the Code of Federal Regulations Patient History Date of Service: 05/28/19 Reason for admission: Numbness / Slurring of speech History of Present Illness: 73 yrs old Female with past medical history of hypertension chronic back pain presents with complaints of Numbness of face and slurring of speech. Patient stated that the symptoms started he over several initially the thumb and right hand later on spreading onto face and tongue and started having slurring of speech. denies any palpitation no chest pain. Denies any headache or any focal weakness. No previous history of CVA or atrial fibrillation Denies any fever or chills No nausea vomiting or diarrhea Patient was assessed in the ER and the symptoms that resolving except for numbness on the right side of the face. the patient is being admitted for further CVA workup Allergies No Known Allergies Allergy (Unverified 05/17/12 21:54) Home medications list reviewed: Yes Home Medications: Hydrocodone 10/APAP 325 [[place] 10/325*] 1 tab PO Q6H PRN 05/30/18 lisinopriL [Lisinopril] 5 mg PO DAILY 05/30/18 Ciprofloxacin HCl [Cipro 500 MG Tablet] 500 mg PO BID #28 tab 06/01/18 Tramadol HCl [Ultram] 50 mg PO TID PRN #15 tablet 06/01/18 - Past Medical/Surgical History Diabetic: No Past Medical History: Reviewed- Non-Contributory -: UTI -: Breast cancer -: Chronic low back pain -: scoliosis Past Surgical History: Reviewed- Non-Contributory -: Laminectomy of the lumbar spine -: Bilateral mastectomy -: right bunionectomy -: back fusion -: cataract removal - Family History Family History: Reviewed- Non-Contributory - Family History Mother -: Diabetes - Social History Smoking Status: Former smoker Alcohol use: No CD- Drugs: No Caffeine use: Yes Review of Systems 10-point ROS is otherwise unremarkable Physical Examination - Vital Signs Temperature: 98.2 F Blood Pressure: 132/72 Pulse: 68 Respirations: 18 - Physical Exam General: Alert, In no apparent distress, Oriented x3 HEENT: Atraumatic, Normocephalic Neck: Supple, 2+ carotid pulse no bruit Respiratory: Clear to auscultation bilaterally, Normal air movement Cardiovascular: Normal pulses, Regular rate/rhythm Capillary refill: <2 Seconds Gastrointestinal: Soft and benign, W/out hepatosplenomegaly Musculoskeletal: No clubbing, No swelling Integumentary: No rashes Neurological: Normal speech, Normal strength at 5/5 x4 extr Lymphatics: No axilla or inguinal lymphadenopathy External genitalia: Deferred Rectal: Deferred Assessment and Plan - Problems (Diagnosis) (1) TIA (transient ischemic attack) Current Visit: Yes Status: Acute (2) Numbness Current Visit: Yes Status: Acute (3) Hypertension Current Visit: Yes Status: Chronic (4) Chronic back pain Current Visit: Yes Status: Chronic - Plan Possible SANTOS To rule out CVA Hypertension Chronic back pain History of breast cancer ? Plan Stroke work up Monitor under telemetry will start on aspirin and statin Neurology consult Get an echocardiogram MRI and carotid Dopplers Continue home medications and titrate as needed GI/DVT prophylaxis Advanced directives full code Discharge Plan: Home Plan to discharge in: 24 Hours - Advance Directives Does patient have a Living Will: No Does patient have a Durable POA for Healthcare: No Time Spent Managing Pts Care (In Minutes): 42
[2019-05-28 18:09] LABS: Urine Blood TRACE (NEG); Urine Glucose NEGATIVE (NEG); Urine Protein NEGATIVE (NEG); Urine pH 6.5 (5.0-7.0)
[2019-05-28] MEDS ORDERED: THIAMINE 200 MG/2 ML INJ ONE (18:12)
[2019-05-28] MEDS ORDERED: NA CHLORIDE 0.9% 1,000 ML ONE (18:12)
[2019-05-28 18:19] LABS: Absolute Lymphocytes (CBC) 1.5 K/uL (0.7-4.9); Basophils % 0.7 % (0-1.3); Hematocrit 40.8 % (36.0-45.0); Lymphocytes % 18.5 % (15.3-44.8); MPV 7.5 fL (7.6-11.3); RBC Red Blood Cell Count 4.38 M/uL (3.86-4.86)
[2019-05-28 18:23] LABS: Protime INR 0.87
[2019-05-28] MEDS ORDERED: ASPIRIN 81 MG CHEWABLE TABLET ONE (18:28)
[2019-05-28 18:41] LABS: ALT/SGPT 35 U/L (12-78); AST/SGOT 21 U/L (15-37); Albumin 3.9 g/dL (3.4-5.0); Alkaline Phosphatase 83 U/L (45-117); BUN Blood Urea Nitrogen 23 mg/dL (7-18); Bicarbonate 28 mmol/L (21-32); Bilirubin Direct 0.1 mg/dL (0-0.2); Bilirubin Total 0.4 mg/dL (0.2-1.0); Glucose Level 106 mg/dL (74-106); Magnesium 2.1 mg/dL (1.8-2.4); NT PRO-BNP 78 pg/mL (<125); Protein, Total 7.2 g/dL (6.4-8.2); Sodium Level 139 mmol/L (136-145); Troponin (Emerg Dept Use Only) < 0.02 ng/mL (0.0-0.045)
[2019-05-28 20:55] VITALS: O2SAT 98
[2019-05-28] MEDS ORDERED: ATORVASTATIN 40 MG TAB PO SCH (21:00)
[2019-05-28] MEDS: ENOXAPARIN 40 MG/0.4 ML SQ SCH (21:16)
[2019-05-29] MEDS ORDERED: ESZOPICLONE 1 MG TAB PO PRN (00:49)
[2019-05-29 05:29] LABS: Absolute Lymphocytes (CBC) 1.5 K/uL (0.7-4.9); Basophils % 0.7 % (0-1.3); Hematocrit 37.9 % (36.0-45.0); Lymphocytes % 26.2 % (15.3-44.8); MPV 7.7 fL (7.6-11.3); RBC Red Blood Cell Count 4.16 M/uL (3.86-4.86)
[2019-05-29 05:46] LABS: Albumin 3.5 g/dL (3.4-5.0); Bilirubin Total 0.5 mg/dL (0.2-1.0); Potassium 3.9 mmol/L (3.5-5.1); Protein, Total 6.4 g/dL (6.4-8.2)
[2019-05-29 07:52] VITALS: BP 162/85; TEMP 98.6
[2019-05-29] MEDS: ENOXAPARIN 40 MG/0.4 ML SQ SCH (08:19)
[2019-05-29] MEDS ORDERED: lisinopriL 5 MG TAB PO SCH (09:00)
[2019-05-29] MEDS ORDERED: ASPIRIN EC 81 MG TAB PO SCH (09:00)
[2019-05-29] MEDS ORDERED: POTASSIUM CL SA 10 MEQ TAB PO ONE (09:00)
--- NOTE | 2019-05-29 09:24 | P.DS ---
Admission Date: 05/28/19 Discharge Date: 05/29/19 Disposition: ROUTINE DISCHARGE Discharge Condition: GOOD Reason for Admission: Numbness / Slurring of speech - Problems (1) TIA (transient ischemic attack) Status: Acute (2) Numbness Status: Acute (3) Hypertension Status: Chronic (4) Chronic back pain Status: Chronic Brief History of Present Illness: 73 yrs old Female with past medical history of hypertension chronic back pain presents with complaints of Numbness of face and slurring of speech. Patient stated that the symptoms started he over several initially the thumb and right hand later on spreading onto face and tongue and started having slurring of speech. denies any palpitation no chest pain. Denies any headache or any focal weakness. No previous history of CVA or atrial fibrillation Denies any fever or chills No nausea vomiting or diarrhea Patient was assessed in the ER and the symptoms that resolving except for numbness on the right side of the face. the patient is being admitted for further CVA workup Hospital Course: Transient ischemic attack Hypertension Hyperlipidemia Chronic back pain History of breast cancer Course The patient was admitted and was monitored under telemetry, she underwent Stroke work up including MRI of the brain and carotid Doppler. MRA did not show any acute stroke. Patient was started on aspirin statin. Lipid panel showed hyperlipidemia, patient was advised neurology consult an echocardiogram. Patient wanted go home and follow up as an outpatient. The patient is being discharged home today in a stable condition with advice to follow up with PCP in 1 week and also with Dr. Maureen katz in 1-2 weeks Vital Signs/Physical Exam: Temp Pulse Resp BP Pulse Ox 98.6 F 71 18 162/85 H 98 05/29/19 07:51 05/29/19 08:18 05/29/19 07:51 05/29/19 08:18 05/29/19 07:51 General: Alert, In no apparent distress, Oriented x3 HEENT: Atraumatic, Normocephalic Neck: Supple Respiratory: Clear to auscultation bilaterally Cardiovascular: Normal pulses, Regular rate/rhythm Capillary refill: <2 Seconds Gastrointestinal: Soft and benign, W/out hepatosplenomegaly Musculoskeletal: No swelling Integumentary: No rashes Neurological: Normal speech, Normal strength at 5/5 x4 extr Lymphatics: No axilla or inguinal lymphadenopathy Laboratory Data at Discharge: WBC 5.9 K/uL (4.3-10.9) D 05/29/19 05:10 Hgb 12.7 g/dL (12.0-15.0) 05/29/19 05:10 Hct 37.9 % (36.0-45.0) 05/29/19 05:10 Plt Count 333 K/uL (152-406) 05/29/19 05:10 PT 10.3 SECONDS (9.5-12.5) 05/28/19 18:04 INR 0.87 05/28/19 18:04 Sodium 143 mmol/L (136-145) 05/29/19 05:10 Potassium 3.9 mmol/L (3.5-5.1) 05/29/19 05:10 BUN 16 mg/dL (7-18) 05/29/19 05:10 Creatinine 0.76 mg/dL (0.55-1.3) 05/29/19 05:10 Glucose 100 mg/dL (74-106) 05/29/19 05:10 Magnesium 2.1 mg/dL (1.8-2.4) 05/28/19 18:04 Total Bilirubin 0.5 mg/dL (0.2-1.0) 05/29/19 05:10 AST 19 U/L (15-37) 05/29/19 05:10 ALT 27 U/L (12-78) 05/29/19 05:10 Alkaline Phosphatase 72 U/L (45-117) 05/29/19 05:10 Triglycerides 127 mg/dL (<150) 05/28/19 18:04 Cholesterol 233 mg/dL (<200) H 05/28/19 18:04 HDL Cholesterol 85 mg/dL (40-60) H 05/28/19 18:04 Cholesterol/HDL Ratio 2.74 05/28/19 18:04 Home Medications: Hydrocodone 10/APAP 325 [[place] 10/325*] 7.5 tab PO TID PRN 05/30/18 lisinopriL [Lisinopril] 20 mg PO DAILY 05/30/18 Eszopiclone [Lunesta] 3 mg PO BEDTIME PRN 05/28/19 Hydrocodone Bit/Acetaminophen [Hydrocodon-Acetaminoph 7.5-325] 0.5 tab PO BEDTIME PRN 05/28/19 Aspirin [Aspirin EC 81 MG] 81 mg PO DAILY #30 tablet. 05/29/19 Atorvastatin Calcium 20 mg PO BEDTIME #30 tablet 05/29/19 New Medications: Aspirin [Aspirin EC 81 MG] 81 mg PO DAILY #30 tablet. Atorvastatin Calcium 20 mg PO BEDTIME #30 tablet Diet: AHA Activity: Ad jose carlos Followup: Antoine Reddy MD [ASSOCIATE-ACTIVE - CAN ADMIT] - (Please call to make an appointment) Time spent managing pt's care (in minutes): 34
--- NOTE | 2019-05-29 11:01 | EKG ---
Test Date: 2019-05-28 Test Time: 17:05:24 Analytical Tech: CARIE MEASUREMENT RESULTS: Intervals: Rate: 71 MO: 148 QRSD: 102 QT: 386 QTc: 419 [place]: P: 42 MO: 148 QRS: 52 T: 41 INTERPRETIVE STATEMENTS: Normal sinus rhythm Normal ECG Compared to ECG 05/17/2012 21:47:04 No significant changes Electronically Signed On 05-29-19 10:59:52 LAST SCOURER by Michael Strickland
== END 2019-05-29 10:59 | disposition home or self-care (01) ==
LOC: ER 16:10 → ERHOLD 17:55 → 2ND 18:58
PROVIDERS: ADMIT Family Medicine; ATTEND Family Medicine
DX: G45.9 Transient cerebral ischemic attack, unspecified (principal); I10 Essential (primary) hypertension; M54.9 Dorsalgia, unspecified; Z85.3 Personal history of malignant neoplasm of breast
CPT/HCPCS: 96365; 93005; 87088; 85025 ×2; 87086; 80048; 36415 ×2; 83735; 85610; 80061; 80076; 84443; 81003; 84484; 80053; 83880; 71045; 93880; 70551; 99285; J3411; J1650 ×2; J7030; G0378 ×3